=== PATIENT | male | born 1995 | race Two or more races ===

== ENCOUNTER 2023-03-04 21:42 | Emergency (ER) | payer OTHER ==
[~2023-03-04] VITALS: Ht 170.2 cm; Wt 76.7 kg
[2023-03-04] MEDS ORDERED: LORAZEPAM INJ 2 MG/ML VIAL ONE (22:14)
[2023-03-04] MEDS ORDERED: LORAZEPAM INJ 2 MG/ML VIAL IM ONE (22:30)
[2023-03-04 23:48] VITALS: BP 136/87; TEMP 98.2; O2SAT 99
== END 2023-03-04 23:49 ==
LOC: ER 21:44
DX: M62.89 Other specified disorders of muscle (principal); F17.200 Nicotine dependence, unspecified, uncomplicated
CPT/HCPCS: 99283; 96372; J2060